=== PATIENT | female | born 1955 | race Caucasian/White ===

== ENCOUNTER 2020-11-17 08:32 | Outpatient (CLI) | payer MEDICARE, OTHER | END 2020-11-17 08:33 | disposition home or self-care (01) | LOC: CSHWCC 08:32 | PROVIDERS: ATTEND Nurse Practitioner Family | DX: I87.332 Chronic venous hypertension (idiopathic) with ulcer and inflammation of left lower extremity (principal); I87.2 Venous insufficiency (chronic) (peripheral); L97.322 Non-pressure chronic ulcer of left ankle with fat layer exposed; I10 Essential (primary) hypertension; K50.90 Crohn's disease, unspecified, without complications; M06.872 Other specified rheumatoid arthritis, left ankle and foot; R60.0 Localized edema; Z89.411 Acquired absence of right great toe; Z98.890 Other specified postprocedural states | CPT/HCPCS: 11042 ==

== ENCOUNTER 2020-11-30 09:44 | Outpatient (CLI) | payer MEDICARE, OTHER | END 2020-11-30 09:45 | disposition home or self-care (01) | LOC: CSHWCC 09:44 | PROVIDERS: ATTEND Nurse Practitioner Family | DX: I87.332 Chronic venous hypertension (idiopathic) with ulcer and inflammation of left lower extremity (principal); L97.322 Non-pressure chronic ulcer of left ankle with fat layer exposed; I87.2 Venous insufficiency (chronic) (peripheral); K50.90 Crohn's disease, unspecified, without complications; M06.872 Other specified rheumatoid arthritis, left ankle and foot; R60.0 Localized edema; Z89.411 Acquired absence of right great toe; Z98.890 Other specified postprocedural states | CPT/HCPCS: 97139; G0463; 99213 ==

== ENCOUNTER 2021-06-22 13:12 | Outpatient (CLI) | payer MEDICARE, OTHER | END 2021-06-22 13:13 | disposition home or self-care (01) | LOC: CSHMAMMO 13:12 | PROVIDERS: ATTEND Family Medicine | DX: Z12.31 Encounter for screening mammogram for malignant neoplasm of breast (principal) | CPT/HCPCS: 77063; 77067 ==

== ENCOUNTER 2023-02-06 14:09 | Outpatient (CLI) | payer MEDICARE, OTHER | END 2023-02-06 14:10 | disposition home or self-care (01) | LOC: CSHMAMMO 14:09 | PROVIDERS: ATTEND Family Medicine | DX: Z12.31 Encounter for screening mammogram for malignant neoplasm of breast (principal) | CPT/HCPCS: 77063; 77067 ==